=== PATIENT | male | born 1990 | race Caucasian/White ===

== ENCOUNTER 2017-07-05 17:15 | Emergency (ER) | payer BC ==
[2017-07-05] MEDS ORDERED: diphenhydrAMINE 50 MG/ML SDV IVPUSH ONE (17:23)
[2017-07-05] MEDS ORDERED: methylPREDNISolone Sodium Succinate 125 MG/2 ML SDV IVPUSH ONE (17:23)
[2017-07-05 17:53] VITALS: BP 132/77
--- NOTE | 2017-07-05 18:21 | EDM.PDOC ---
ED HPI GENERAL MEDICAL PROBLEM - General Stated Complaint: REACTION STEPHEN ESPINOSA [phone] Time Seen by Provider: 07/05/17 18:15 Source of Information: Reports: Patient History Limitations: Reports: No Limitations - History of Present Illness INITIAL COMMENTS - FREE TEXT/NARRATIVE: This 27 yo male patient reports to the ED due to an allergic reaction to a wasp sting. The patient reports he was in the park with his when he was stung by a yellow jacket in the left arm. The patient reports noticing tingling in his hands and a rash on his arms and legs. The patient also reports noticing some numbness in his upper lip and his face feeling "tight". The patient took 50 mg of Benadryl by mouth prior to coming to the ED. Onset: Today Duration: Minutes: Location: Reports: Head, Face, Neck, Upper Extremity, Left, Upper Extremity, Right, Lower Extremity, Left, Lower Extremity, Right Quality: Reports: Dull Severity: Moderate Improves with: Reports: None Worsens with: Reports: None Context: Reports: Other Associated Symptoms: Reports: No Other Symptoms Treatments [employer]: Reports: Other Medication(s) (benadryl) Past Medical History - Past Health History Medical/Surgical History: Denies Medical/Surgical History Social & Family History - Tobacco Use Smoking Status *Q: Never Smoker - Caffeine Use Caffeine Use: Reports: Coffee - Recreational Drug Use Recreational Drug Use: No ED ROS ALLERGIC REACTION - Review of Systems Review Of Systems: ROS reveals no pertinent complaints other than HPI. ED EXAM GENERAL NO PERIP PULSE - Physical Exam Exam: See Below Exam Limited By: No Limitations General Appearance: Alert, WD/WN, Moderate Distress Eye Exam: Bilateral Eye: EOMI, Normal Inspection, PERRL Ears: Normal External Exam, Normal Canal, Hearing Grossly Normal, Normal TMs Nose: Normal Inspection, Normal Mucosa, No Blood Throat/Mouth: Normal Inspection, Normal Lips, Normal Teeth, Normal Gums, Normal Oropharynx, Normal Voice, No Airway Compromise Head: Atraumatic, Normocephalic Neck: Normal Inspection, Supple, Non-Tender, Full Range of Motion Respiratory/Chest: No Respiratory Distress, Lungs Clear, Normal Breath Sounds, No Accessory Muscle Use, Chest Non-Tender Cardiovascular: Normal Peripheral Pulses, Regular Rate, Rhythm, No Edema, No Gallop, No JVD, No Murmur, No Rub GI/Abdominal: Normal Bowel Sounds, Soft, Non-Tender, No Organomegaly, No Distention, No Abnormal Bruit, No Mass (Male) Exam: Deferred Rectal (Males) Exam: Deferred Back Exam: Normal Inspection, Full Range of Motion, NT Extremities: Normal Range of Motion, Non-Tender, No Pedal Edema, Normal Capillary Refill, Other (rash on all extremities) Neurological: Alert, Oriented, CN II-XII Intact, Normal Cognition, Normal Gait, Normal Reflexes, No Motor/Sensory Deficits Psychiatric: Normal Affect, Normal Mood Skin Exam: Warm, Dry, Intact, Normal Color, Rash (urticarial rash on all 4 extremities) Lymphatic: No Adenopathy Course - Vital Signs Last Recorded V/S: Last Vital Signs Temp 37.4 C 07/05/17 17:17 Pulse 79 07/05/17 17:17 Resp 18 07/05/17 17:17 BP 132/77 07/05/17 17:17 Pulse Ox 98 07/05/17 17:17 - Orders/Labs/Meds Meds: Medications Discontinued Medications Generic Name Dose Route Start Last Admin Trade Name Tim PRN Reason Stop Dose Admin Diphenhydramine HCl 50 mg 07/05/17 17:23 07/05/17 17:48 Benadryl IVPUSH 07/05/17 17:24 Not Given ONETIME ONE Methylprednisolone Sodium Succinate 125 mg 07/05/17 17:23 07/05/17 17:35 Solu-Medrol IVPUSH 07/05/17 17:24 125 mg ONETIME ONE Administration Departure - Departure Time of Disposition: 18:31 Disposition: Home, Self-Care 01 Condition: Fair Clinical Impression: Allergic reaction to bee sting - Discharge Information Instructions: Anaphylactic Reaction, Bee, Wasp, or Hornet Sting Care Plan Goals: The patient was advised of the examination results during the visit. The patient was given a dose of SoluMedrol while in the ED. The patient was discharged with a script for Prednisone (20 mg) #10 to take 2 by mouth daily for 5 days and for an EpiPen (0.3 mg) to inject x1 as needed. The patient was encouraged to take Pepci (20 mg) to take 1 by mouth 2 times per day for 1 week. If the patient has any additional symptoms or concerns, the patient should follow-up with his primary care facility or return to the emergency department.
== END 2017-07-05 19:00 | disposition home or self-care (01) ==
LOC: DL.ED 17:15
DX: T63.441A Toxic effect of venom of bees, accidental (unintentional), initial encounter (principal); R20.2 Paresthesia of skin
CPT/HCPCS: 96374; 99283; J2930